=== PATIENT | female | born 1930 | race Caucasian/White ===

== ENCOUNTER 2018-10-20 08:39 | Observation (INO) ==
--- NOTE | 2018-10-09 13:41 | Anesthesiology Consultation ---
Date of Service October 09, 2018 Assessment & Plan (1) Encounter for pre-operative examination: Chart Review Chart Review: Acceptable Risk for Surgery and Patient seen in Pre Admission Testing Teaching & Discussion Instructed NPO after midnight before surgery, except medications with 15 cc of water. Medication instructions provided according to the PAT guidelines. History Surgery Operation Date: 10/20/18 07:00 Proposed Procedures p Left Breast Lumpectomy with Needle Localization and Left [place] Lymph Node Biospy (Injection Only) - Eddie Varner MD, FACS Height/Weight Height: 5 ft 3.5 in Weight: 76.6 kg Allergies Allergy/AdvReac Type Severity Reaction Status Date / Time No Known Allergies Allergy Verified 10/07/18 16:16 Medications Home Medications Medication Instructions Recorded Confirmed Last Taken aspirin [Aspirin Low Dose] 81 mg PO QAM 10/07/18 10/07/18 Unknown glucosamine sulfate [Glucosamine] 500 mg PO DAILY 10/07/18 10/07/18 Unknown hydrochlorothiazide 12.5 mg PO QAM 10/07/18 10/07/18 Unknown latanoprost 1 drp OPHTHALMIC (EYE) PM 10/07/18 10/07/18 Unknown levothyroxine 137 mcg PO QAM 10/07/18 10/07/18 Unknown metoprolol succinate 50 mg PO QAM 10/07/18 10/07/18 Unknown multivitamin 1 tab PO DAILY 10/07/18 10/07/18 Unknown valsartan 160 mg PO QAM 10/07/18 10/07/18 Unknown Past Medical History Medical History Arrhythmia OCCASIONAL EXTRA BEAT "PAC'S OR PVC'S" NO PROBLEMS. Cancer BREAST CANCER Chronic back pain OCCASIONAL Glaucoma Hypertension Hypothyroidism Past Family History Family History Sister FHx: breast cancer Past Surgical History Surgical History Fusion of spine LUMBAR History of adenoidectomy History of appendectomy History of breast biopsy History of cataract surgery BILATERAL History of section X3 History of colonoscopy History of tonsillectomy Past Anesthesia History No Hx of Anesthesia Complications and No Family Hx of Anesthesia Complications History of PONV No Motion Sickness Screening History of Motion Sickness: No Social History Smoking Status: Former smoker tobacco type: cigarettes Do You Dip or Chew Tobacco: No Smoking End Date: QUIT 40 YEARS AGO Hx Alcohol Use: No Hx Substance Use: No substance use type: does not use Exercise / Class Metabolic Activity III < 4 Walking/Shop/Light housework (Denies chest pain and SOB with ambulation; uses cane for longer distances.) Review of Systems Pt denies any recent chest pain, shortness of breath, palpitations, cough, fever or URI. Physical Exam Vital Signs BP: 142/82 (pt follows with PCP for HTN) P: 70bpm SPO2: 94% RA T: 98.6 F R: 16 ENMT Mouth: + dentures (full upper, partial lower); no chipped teeth and no loose teeth Thyromental Distance: > or= 3.5 Finger Breadths (4) Mallampati Class: I Neck normal visual inspection; neck extension not limited Respiratory normal respiratory effort Auscultation: lungs clear to auscultation bilaterally Cardiovascular Rate/Rhythm: regular rate and regular rhythm Heart Sounds: no murmur Vessels: no carotid bruit Extremities: no edema Testing Electrocardiogram Date: 10/09/18 Findings: + NSR @ (65 with 1st degree AV block) NSTWA. Laboratory Results 10/09/18 13:58 10/09/18 13:58
--- NOTE | 2018-10-09 13:46 | PAT Medication Instructions ---
Medication Instructions Date of Service October 09, 2018 Home Medications aspirin [Aspirin Low Dose] 81 mg PO QAM glucosamine sulfate [Glucosamine] 500 mg PO DAILY hydrochlorothiazide 12.5 mg PO QAM latanoprost 1 drp OPHTHALMIC (EYE) PM levothyroxine 137 mcg PO QAM metoprolol succinate 50 mg PO QAM multivitamin 1 tab PO DAILY valsartan 160 mg PO QAM ASK your surgeon for instructions aspirin [Aspirin Low Dose] 81 mg PO QAM STOP taking 2 weeks before surgery glucosamine sulfate [Glucosamine] 500 mg PO DAILY If surgery is within 2 weeks, stop taking as soon as possible. DO NOT take the morning of surgery hydrochlorothiazide 12.5 mg PO QAM multivitamin 1 tab PO DAILY valsartan 160 mg PO QAM Take morning of surgery With a small sip of water, OTHERWISE NOTHING TO EAT OR DRINK AFTER MIDNIGHT: levothyroxine 137 mcg PO QAM metoprolol succinate 50 mg PO QAM Take evening before surgery latanoprost 1 drp OPHTHALMIC (EYE) PM Other Notes If you have any questions please call us at [phone] or [phone] or [phone] or [phone]
[2018-10-09 14:36] LABS: Basophils # (auto) 0.04 K/uL (0-0.2); Basophils % (auto) 0.4 %; Eosinophils # (auto) 0.21 K/uL (0-0.5); Eosinophils % (auto) 1.9 %; Hematocrit (blood only) 40.2 % (37-47); Hemoglobin 13.6 g/dL (12.0-16.0); Immature Granulocytes # (auto) 0.02 K/uL (0.00-0.02); Immature Granulocytes % (auto) 0.2 %; Lymphocytes # (auto) 3.59 K/uL (1.2-3.4); Lymphocytes % (auto) 32.8 %; Mean Corpuscular Hgb Conc 33.8 g/dL (32-36); Mean Corpuscular Volume 89.3 fL (80-100); Monocytes # (auto) 0.75 K/uL (0.11-0.59); Monocytes % (auto) 6.9 %; Neutrophils # (auto) 6.33 K/uL (1.4-6.5); Neutrophils % (auto) 57.8 %; Platelet Count 324 K/uL (130-400); RDW Coefficient of Variation 13.1 % (11.5-14.5); RDW Standard Deviation 42.9 fL (36.4-46.3); White Blood Count 10.94 K/uL (4.8-10.8)
[2018-10-09 14:40] LABS: Calcium 10.1 mg/dl (8.5-10.1); Creatinine Clr Calc Pharmacy 42.5 ml/min; Est GFR (African American) 66.6; Est GFR (Non-African American) 57.5
[~2018-10-20 08:39] MED LIST: CEFAZOLIN 2000MG 2,000 MG/15 ML SYR IV SCH; LR 15ML/HR IV SCH
[2018-10-20] MEDS ORDERED: fentaNYL citrate 100 MCG/2 ML VIAL ONE (10:09)
[2018-10-20] MEDS ORDERED: ONDANSETRON INJ 2 MG/ML 2 ML VIAL IV ONE (10:39)
[2018-10-20] MEDS ORDERED: fentaNYL citrate 100 MCG/2 ML VIAL IV ONE (10:39)
[2018-10-20] MEDS ORDERED: LIDOCAINE HCL 2% 2 ML VIAL/AMP(20MG/ML) INFIL ONE (10:39)
[2018-10-20] MEDS ORDERED: PROPOFOL IV EMULSION 10 MG/ML 20 ML VIAL IV ONE (10:39)
[2018-10-20] MEDS ORDERED: DEXAMETHASONE SOD INJ 4 MG/ML VIAL IV ONE (10:39)
[2018-10-20] MEDS ORDERED: ATROPINE SULFATE 0.1 MG/ML 10ML SYR IV PRN (10:52)
[2018-10-20] MEDS ORDERED: ePHEDrine sulfate 50 MG/ML AMP IV PRN (10:52)
[2018-10-20] MEDS ORDERED: fentaNYL citrate 100 MCG/2 ML VIAL IV PRN (10:52)
[2018-10-20] MEDS ORDERED: HYDROmorphone INJ 1 MG/ML SYRINGE IV PRN (10:52)
[2018-10-20] MEDS ORDERED: DEXAMETHASONE SOD INJ 4 MG/ML VIAL IV PRN (10:52)
[2018-10-20] MEDS ORDERED: ONDANSETRON INJ 2 MG/ML 2 ML VIAL IV PRN ×2 (10:52→12:10)
[2018-10-20] MEDS ORDERED: ACETAMINOPHEN 1,000 MG/100 ML VIAL IV ONE (12:05)
--- NOTE | 2018-10-20 12:05 | Operative Report ---
Post Operative Report Pre & Post Diagnosis Operation Date: 10/20/18 11:00 Pre-Op Diagnosis: Breast Cancer, Left Post-Op Diagnosis: Breast Cancer, Left Procedure Operation Date: 10/20/18 11:00 Actual Procedures p Left Breast Lumpectomy with Needle Localization and Left [place] Lymph Node Biospy (Injection Only)(Left) - Eddie Varner MD, FACS Surgeon Eddie Varner MD, FACS Employment Law Specialist Surya Parada Estimated Blood Loss 10 Findings Consistent with Post-Op Diagnosis Specimens Lt br tissue and Lt SLN Description of Procedure see dictation I attest to the content of the Intraoperative Record and any orders documented therein. Any exceptions are noted below.
[2018-10-20] MEDS ORDERED: MoRPHine SULFATE 2 MG/ML CARP IV PRN (12:08)
[2018-10-20] MEDS ORDERED: MoRPHine SULFATE 4 MG/ML 1 ML CARP\\VIAL IV PRN (12:08)
[2018-10-20] MEDS ORDERED: HYDROCODONE/ACETAMOPHEN 5/325MG TAB PO PRN ×2 (12:08)
[2018-10-20] MEDS ORDERED: SODIUM CHLORIDE 0.9% 1000ML 1,000 ML IV SCH (12:15)
[2018-10-20] MEDS ORDERED: METHYLENE BLUE 0.5% 10 ML VIAL ONE (12:18)
[2018-10-20] MEDS ORDERED: BUPIVACAINE 0.5 % 5 MG/1 ML MPF 30ML VIAL ONE (12:18)
--- NOTE | 2018-10-20 12:22 | Operative Report ---
Post Operative Report Pre & Post Diagnosis Operation Date: 10/20/18 11:00 Pre-Op Diagnosis: Breast Cancer, Left Post-Op Diagnosis: Breast Cancer, Left Procedure Operation Date: 10/20/18 11:00 Actual Procedures p Left Breast Lumpectomy with Needle Localization and Left [place] Lymph Node Biospy (Injection Only)(Left) - Eddie Varner MD, FACS Surgeon Eddie Varner MD, FACS Truck Despatcher Surya Parada Estimated Blood Loss 10 Findings Consistent with Post-Op Diagnosis Specimens Lt breast tissue and Lymph node Description of Procedure Dr. Varner dictating on 10/20/2018. Patient was brought in the operating room placed operating table supine position her arms were extended on an armboard her left chest and axilla were prepped and draped in usual fashion she had a needle in the left breast upper medial. After prepping anesthetic and local anesthesia for the skin and subcutaneous tissue incision was made in the left axilla carried dissection down using the neoprobe to find the lymph node. Node was sent for frozen section was negative. During the frozen section performed lumpectomy by making an elliptical incision around the needle from medial to lateral over the areola. Dissection was carried down around the mass to the pectoralis major muscle. Tissue was then marked with the skin anterior, long silk suture lateral short silk suture medial and methylene blue as the deep/muscle margin. Additional superior and inferior tissue were taken and marked with a long silk suture lateral short silk suture medial methylene blue as the new margin. Clips were placed in the area of the tumor deep tissue was reapproximated using 2 oh plain suture and the breast skin closed using subcuticular 4-0 Monocryl and Steri-Strips. Left axilla was closed using 4-0 nylon suture. Dressing applied patient transferred to recovery room in stable condition. My executive assistant to general counsel helped with prepping draping excision of the breast tissue and lymph node closure of the wounds. I attest to the content of the Intraoperative Record and any orders documented therein. Any exceptions are noted below.
--- NOTE | 2018-10-20 13:02 | Anesthesiology Progress Note ---
Date of Service October 20, 2018 Anesthesia Post Procedure Vital Signs Vital Signs: Temp Pulse Pulse Resp BP Pulse Ox 10/20/18 12:55 36.4 C L 60 14 154/67 H 96 10/20/18 12:45 62 11 L 146/68 H 98 10/20/18 12:35 63 12 151/69 H 100 10/20/18 12:25 70 21 148/80 H 100 10/20/18 12:17 36.4 C L 72 20 151/70 H 100 10/20/18 10:16 36.8 C 64 18 157/73 H 96 Notes Mental Status: alert / awake / arousable and participated in evaluation Patient Amnestic to Procedure: Yes Nausea / Vomiting: adequately controlled Pain: adequately controlled Airway Patency, RR, SpO2: stable & adequate BP & HR: stable & adequate Hydration State: stable & adequate Anesthetic Complications: no major complications apparent
--- NOTE | 2018-10-20 16:28 | Internal Medicine Consult Note ---
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 The patient seen postoperatively has no complaints or problems and surrounded by her family he did take her antihypertensive medications this morning prior to her visit Allergies Allergy/AdvReac Type Severity Reaction Status Date / Time brimonidine Allergy Unknown Verified 10/20/18 10:13 Home Medications Home Medications Medication Instructions Recorded Confirmed Type aspirin [Aspirin Low Dose] 81 mg PO QAM 10/07/18 10/20/18 History glucosamine sulfate [Glucosamine] 500 mg PO DAILY 10/07/18 10/20/18 History hydrochlorothiazide 12.5 mg PO QAM 10/07/18 10/20/18 History latanoprost 1 drp OPHTHALMIC (EYE) PM 10/07/18 10/20/18 History levothyroxine 137 mcg PO QAM 10/07/18 10/20/18 History metoprolol succinate 50 mg PO QAM 10/07/18 10/20/18 History multivitamin 1 tab PO DAILY 10/07/18 10/20/18 History valsartan 160 mg PO QAM 10/07/18 10/20/18 History hydrocodone-acetaminophen [[place]] 1 - 2 tab PO Q6H #30 tab 10/20/18 Rx Patient History Medical History Arrhythmia OCCASIONAL EXTRA BEAT "PAC'S OR PVC'S" NO PROBLEMS. Cancer BREAST CANCER Chronic back pain OCCASIONAL Glaucoma Hypertension Hypothyroidism Surgical History Fusion of spine LUMBAR History of adenoidectomy History of appendectomy History of breast biopsy History of cataract surgery BILATERAL History of section X3 History of colonoscopy History of tonsillectomy Family History Sister FHx: breast cancer Social History Preferred Language: Jamaican Communication Ability: Effective Slitter Operator Required: No Beliefs That Will Affect Care: None Current Living Situation: Family Other Information That Helps Us Care for You: No Feels Safe at Home: Yes Safety Concerns: Feels Safe At This Time Smoking Status: Former smoker Hx Alcohol Use: No Hx Substance Use: No Review of Systems ROS: well nourished well developed. No double vision blurry vision No problems with speech or swallowing No palpitations, minor chest discomfort the surgical site No Wheezing or breathing issues No abdominal pain nausea vomiting diarrhea changes in appetite or weight No burning urine urine frequency or changes in color No focal joint pain or muscle pain No skin rashes or oral lesions No unusual bruising or bleeding No focused back pain or numbness or loss of strength No changes in memory or confusion Physical Exam Vital Signs (Past 24 Hours): Last Vital Signs Temp 36.7 C 10/20/18 16:24 Pulse 75 10/20/18 16:24 Resp 18 10/20/18 16:24 BP 134/73 10/20/18 16:24 Pulse Ox 91 10/20/18 16:24 The patient appeared well nourished and normally developed. Vital signs as documented. Head exam is unremarkable. normocephalic, atraumatic Neck is without jugular venous distension, thyromegaly, or lymphademopathy Lungs are clear to auscultation and percussion. Cardiac exam reveals Rhythm is regular. First and second heart sounds normal. Abdominal exam reveals normal bowel sounds, no masses, no organomegaly Extremities are nonedematous and both pedal pulses are present Neurologic exam is A&Ox3, no focal deficits, strength is equal bilateral Psychologically seems neither anxious or depressed Skin is warm Dry without bruises or lesions
[2018-10-20] MEDS ORDERED: LATANOPROST 0.005% OP SOLN 2.5 ML BTL OP SCH (21:00)
[2018-10-20] MEDS: ACETAMINOPHEN 325 MG TAB PO PRN (21:10)
[2018-10-20] MEDS: CEFAZOLIN 1000MG 1,000 MG/7.5 ML SYR IV SCH (21:10)
[2018-10-21] MEDS: CEFAZOLIN 1000MG 1,000 MG/7.5 ML SYR IV SCH (03:26)
[2018-10-21 03:31] VITALS: PULSE 69; O2SAT 95
[2018-10-21] MEDS: ACETAMINOPHEN 325 MG TAB PO PRN (05:42)
[2018-10-21] MEDS ORDERED: LEVOTHYROXINE SODIUM 137 MCG TABLET PO SCH (06:30)
--- NOTE | 2018-10-21 06:40 | Discharge Summary ---
PRINCIPAL DIAGNOSIS: Left breast cancer. PROCEDURES: The patient underwent left breast lumpectomy with sentinel lymph node biopsy. HISTORY OF PRESENT ILLNESS AND HOSPITAL COURSE: The patient is an 88-year-old female with biopsy proven left breast cancer for definitive surgery. She was brought into the hospital on 10/20/2018 where she underwent needle localization left breast lumpectomy with sentinel lymph node biopsy. She tolerated it very well and did well overnight and is felt stable for discharge home today to be followed in the surgical clinic next week.
[2018-10-21 06:52] VITALS: BP 132/62; TEMP 97.9
--- NOTE | 2018-10-21 08:01 | Anesthesiology Progress Note ---
Date of Service October 21, 2018 Anesthesia Post Procedure Vital Signs Vital Signs: Temp Pulse Pulse Pulse Resp BP Pulse Ox 10/21/18 06:51 36.6 C 69 18 132/62 95 10/21/18 03:25 36.7 C 69 16 143/64 H 95 10/20/18 23:25 37.4 C 10/20/18 23:20 37.5 C 74 18 156/69 H 94 10/20/18 19:15 37 C 74 16 157/76 H 94 10/20/18 16:24 36.7 C 75 18 134/73 91 10/20/18 15:42 36.5 C 18 156/74 H 97 10/20/18 14:37 36.5 C 64 16 164/74 H 97 10/20/18 13:10 36.5 C 63 18 138/53 L 97 10/20/18 12:55 36.4 C L 60 14 154/67 H 96 10/20/18 12:45 62 11 L 146/68 H 98 10/20/18 12:35 63 12 151/69 H 100 10/20/18 12:25 70 21 148/80 H 100 10/20/18 12:17 36.4 C L 72 20 151/70 H 100 10/20/18 10:16 36.8 C 64 18 157/73 H 96 Notes Mental Status: alert / awake / arousable and participated in evaluation Patient Amnestic to Procedure: Yes Nausea / Vomiting: adequately controlled Pain: adequately controlled Airway Patency, RR, SpO2: stable & adequate BP & HR: stable & adequate Hydration State: stable & adequate Anesthetic Complications: no major complications apparent and Pt Satisfied with anesthetic care
[2018-10-21] MEDS ORDERED: hydroCHLOROthiazide 25 MG TAB PO SCH (09:00)
[2018-10-21] MEDS ORDERED: METOPROLOL SUCC 50MG EXT REL TAB PO SCH (09:00)
[2018-10-21] MEDS ORDERED: VALSARTAN 80 MG TAB PO SCH (09:00)
--- NOTE | 2018-10-21 14:53 | Nuclear Medicine Report ---
NM sentinel node inject only CLINICAL HISTORY: Left breast cancer. COMPARISON STUDY: Diagnostic mammogram October 20, 2018. PROCEDURE: The procedure, risks and benefits were discussed with the patient and informed consent was obtained. The procedure was performed by Dr. Lux following a timeout. Skin of the left breast was prepped. A total of 0.507 mCi of Lymphoseek was injected in 5 intradermal injections within a lef t periareolar distribution at 9:45 AM on October 20, 2018. The patient tolerated the procedure well and no immediate complications were evident. No imaging was requested at this time. IMPRESSION: Left breast lymphoscintigraphy. Electronically signed by: Tenzin Lux M.D. 10/21/2018 2:51 PM
--- NOTE | 2018-10-28 09:28 | Mammography Report ---
NEEDLE LOCALIZATION LEFT BREAST: 10/20/2018 CLINICAL HISTORY: 88-year-old woman with recent biopsy-proven carcinoma in the 11:00 left breast. She presents for preoperative needle wire localization prior to lumpectomy. COMPARISON: Comparison is made to exams dated: 09/22/2018 mammogram, 09/08/2018 mammogram, 09/08/2018 [facility], 04/19/2014 mammogram, 04/15/2013 mammogram, and 04/11/2012 mammog [facility]. PATIENT CONSENT: The risks of the procedure were explained to the patient and informed consent was ob tained. The patient denied eating or drinking anything this morning that would preclude anesthesia. She also denied allergy to lidocaine. A timeout was performed and the left breast was agreed as the site for preoperative localization. PROCEDURE DESCRIPTION: Prior left breast imaging was reviewed including left breast ultrasound-guided core biopsy and post procedure mammograms dated 09/22/2018, diagnostic mammogram and ultrasound 019, screening mammograms 04/19/2014, 04/15/2013. The palpable hypoechoic solid mass in the 11:00 left breast representing the biopsy-proven carcinoma is the intended target for localization. A biopsied left axillary lymph node yielded benign pathology results and therefore was not localized during thi s exam. [place] lymph node biopsy is still going to be performed. With the patient supine slightly angled in right lateral decubitus positioning, and left arm extended , the skin of the left upper inner 11:00 breast was cleansed with Betadine and sterile drapes were pl aced. 1% buffered Lidocaine without epinephrine was administered as local anesthesia. A 5cm Baker II needle and wire combination was inserted into the breast. Optimal positioning was confirmed and th e wire was locked in place, leaving both the needle and wire within the breast. The entire procedure including approach and needle length were discussed with the operating surgeon prior to surgery. The patient tolerated the procedure well and there was no immediate complication. She was sent to the o perating room in satisfactory condition. A specimen radiograph was obtained which demonstrates the localizing needle, dense 2 cm mass within t he specimen and the ribbon-shaped biopsy marker clip located at H1 on the grid. These findings are compatible with successful preoperative localization and subsequent surgical excision. Final surgica l pathology is pending. IMPRESSION: NEEDLE LOCALIZATION Status post preoperative needle and wire localization for a biopsy-proven carcinoma in the 11:00 left breast. The imaged specimen includes the intended abnormalities. Final surgical pathology is leigh devries. Guillermina Matthews M.D. ay/:10/20/2018 12:20:12 Porcelain Buildup Assistant: RT Sb(Saira)(M), [facility]
== END 2018-10-21 10:40 | disposition home health service (06) ==
LOC: 3N 08:39 → ASU 08:39